=== PATIENT | male | born 1990 | race Caucasian/White ===

== ENCOUNTER 2018-02-19 14:03 | Inpatient (IN) | payer BC ==
[2018-02-19] MEDS ORDERED: LORazepam TAB(*) 1 MG PO ONE ×2 (14:24→19:50)
[2018-02-19] MEDS ORDERED: Haloperidol TAB* 5 MG PO ONE ×2 (14:24→19:50)
[2018-02-19] MEDS ORDERED: diPHENhydraMINE PO* 50 MG PO ONE (14:24)
--- NOTE | 2018-02-19 14:31 | ED ---
Psychiatric Complaint - HPI Summary HPI Summary: A 27 y/o male presents to [facility] with a chief complaint of being brought in by police on a 945 on 02/19/18. He was at [facility], which he reports visiting every week, when his psychiatrist called the police because of concern for the patient being a danger to himself or others. In the ED the patient denies SI/HI. However the patient reports that he has ADD, is bipolar and struggles with depression. He takes Lamictal along with other medication. In the ED he is speaking really fast, claiming that he is hypomanic and unable to eat or sleep. He is saying things like "I am trying to root out corruption in the government", "Republicans never kill themselves", the therapist is "either an atheist or a communist" and "I'm no Busta Rhymes but I can talk consecutively for 35 seconds without taking a breath". He reports being angry after being handcuffed even though he is a Anab[employer] and a pacifist. FHx of bipolar. - History Of Current Complaint Chief Complaint: EDMentalHealth Time Seen by Provider: 02/19/18 14:16 Hx Obtained From: Patient, Other: - police Onset/Duration: Sudden Onset, Lasting Hours Timing: Hours Severity Initially: Moderate Severity Currently: Moderate Character: Manic, Angry Aggravating Factor(s): Nothing Alleviating Factor(s): Nothing Associated Signs And Symptoms: Positive: Sleep Disturbance, Appetite Change Related History: Positive For: Prior Psychiatric Issues Has Suicidal: Denies: Thoughts Has Homicidal: Denies: Thoughts - Allergies/Home Medications Allergies/Adverse Reactions: Allergies Allergy/AdvReac Type Severity Reaction Status Date / Time No Known Allergies Allergy Verified 02/19/18 14:14 Home Medications: Home Medications Bupropion XL* [Wellbutrin XL *] 150 mg PO QAM 02/19/18 [History Confirmed ] Lisdexamfetamine(NF) [Vyvanse(NF)] 20 mg PO DAILY MDD 20 mg 02/19/18 [History Confirmed 02/19/18] QUEtiapine TAB* [Seroquel 100 MG *] 100 mg PO BEDTIME 02/19/18 [History Confirmed 02/19/18] lamoTRIgine TAB(*) [LaMICtal TAB(*)] 200 mg PO BID 02/19/18 [History Confirmed 02/19/18] PMH/Surg Hx/FS Hx/Imm Hx Endocrine/Hematology History: Denies: Hx Diabetes Cardiovascular History: Denies: Hx Hypertension Psychiatric History: Reports: Hx Depression, Hx Bipolar Disorder - Family History Known Family History: Positive: Other - bipolar - Social History Alcohol Use: None Hx Substance Use: No Substance Use Type: Reports: None Hx Tobacco Use: No Smoking Status (MU): Never Smoked Tobacco Review of Systems Negative: Fever Psychological: Other - Negative: SI/HI Positive: Other - Positive: manic and angry, sleep disturbance and appetite change All Other Systems Reviewed And Are Negative: Yes Physical Exam - Summary Physical Exam Summary: Appearance: The patient is well-nourished in no acute distress and in no acute pain. Skin: The skin is warm and dry and skin color reflects adequate perfusion. HEENT: The head is normocephalic and atraumatic. The pupils are equal and reactive. The conjunctivae are clear and without drainage. Nares are patent and without drainage. Mouth reveals moist mucous membranes and the throat is without erythema and exudate. The external ears are intact. The ear canals are patent and without drainage. The tympanic membranes are intact. Neck: The neck is supple with full range of motion and non-tender. There are no carotid bruits. There is no neck vein distension. Respiratory: Chest is non-tender. Lungs are clear to auscultation and breath sounds are symmetrical and equal. Cardiovascular: Heart is regular rate and rhythm. There is no murmur or rub auscultated. There is no peripheral edema and pulses are symmetrical and equal. Abdomen: The abdomen is soft and non-tender. There are normal bowel sounds heard in all four quadrants and there is no organomegaly palpated. Musculoskeletal: There is no back tenderness noted. Extremities are non-tender with full range of motion. There is good capillary refill. There is no peripheral edema or calf tenderness elicited. Neurological: Patient is alert and oriented to person, place and time. The patient has symmetrical motor strength in all four extremities. Cranial nerves are grossly intact. Deep tendon reflexes are symmetrical and equal in all four extremities. Psychiatric: Manic, emotionally labile. Triage Information Reviewed: Yes Vital Signs On Initial Exam: Initial Vitals Temp Pulse Resp BP Pulse Ox 99.0 F 118 18 150/87 100 02/19/18 14:07 02/19/18 14:07 02/19/18 14:07 02/19/18 14:07 02/19/18 14:07 Vital Signs Reviewed: Yes Diagnostics - Vital Signs Vital Signs Temp Pulse Resp BP Pulse Ox 02/19/18 14:07 99.0 F 118 18 150/87 100 - Laboratory Result Diagrams: 02/19/18 15:26 02/19/18 15:26 Lab Statement: Any lab studies that have been ordered have been reviewed, and results considered in the medical decision making process. Re-Evaluation - Re-Evaluation First Eval Re-Evaluation Time: 14:33 Change: Unchanged Comment: Patient is still manic, agrees to seroquel. Second Eval Re-Evaluation Time: 16:00 Change: Unchanged Comment: Patient is cleared for MHE. Course/Dx - Course Course Of Treatment: Mr. Hurtado presented to the emergency department with a pressured, manic speech pattern and labile emotions. He agreed to take some Seroquel to call him down which she has used in the past and it did help. He was not toxic in appearance with stable vital signs. He was medically cleared and evaluated by the mental health unit felt he was appropriate for 939 admission. - Differential Dx/Clinical Impression Provider Diagnosis: Bipolar 1 disorder, Manic behavior - Physician Notifications Discussed Care Of Patient With: Delvin Clark Time Discussed With Above Provider: 18:10 Instructed by Provider To: Other - Per bone drier operator, Dr. Clark has decided that the patient will be an involuntary admit. Discharge - Sign-Out/Discharge Documenting (check all that apply): Patient Departure - Admit - Discharge Plan Condition: Fair [place] [place] Disposition and Condition Condition: FAIR [place]position[place] [facility] [place] Attestation Statements Document Initiated by Scribe: Yes Documenting Scribe: Kaleb العلي Provider For Whom Manjinder is Documenting (Include Credential): Ahmet Mendez MD Scribe Attestation: Kaleb Chavis, scribed for Ahmet Mendez MD on 02/19/18 at 2128. Scribe Documentation Reviewed: Yes Provider Attestation: The documentation as recorded by the Kaleb brooks accurately reflects the service I personally performed and the decisions made by me, Ahmet Mendez MD Status of Scribe Document: Viewed
[2018-02-19] MEDS ORDERED: QUEtiapine TAB* 100 MG PO ONE (14:43)
[2018-02-19] MEDS ORDERED: Mouth Piece, Nicotine* 1 EACH CARTRIDGE INH PRN (15:02)
[2018-02-19 15:27] LABS: Barbiturates Urine Screen None Detected (None Detect); Benzodiazepine Urine Screen None Detected (None Detect); Urine Cannabinoids Screen Presumptive Positive (None Detect)
[2018-02-19 15:41] LABS: Urine Appearance Cloudy; Urine Bacteria Absent (Absent); Urine Bilirubin 1+ (Negative); Urine Blood Negative (Negative); Urine Color Amber; Urine Glucose Negative (Negative); Urine Ketones 2+ (Negative); Urine Nitrite Negative (Negative); Urine Protein 2+(100 mg/dL) (Negative); Urine Red Blood Cell Absent (Absent); Urine Specific Gravity 1.039 (1.010-1.030); Urine Urobilinogen Positive (Negative); Urine White Blood Cell Trace(0-5/hpf) (Absent)
[2018-02-19 15:54] LABS: ABS Basophils 0 10^3/ul (0-0.2); ABS Eosinophils 0 10^3/ul (0-0.6); ABS Lymphocytes 1.3 10^3/ul (1.0-4.8); ABS Monocytes 0.5 10^3/ul (0-0.8); ABS Neutrophils 7.2 10^3/ul (1.5-7.7); ABS Nucleated RBC 0 10^3/ul; Eosinophil % 0.3 %; Hematocrit 46 % (42-52); Hemoglobin 15.9 g/dl (14.0-18.0); Lymphocyte % 14.4 %; Mean Corpuscular HGB Conc 34 g/dl (31-36); Mean Corpuscular Hemoglobin 29 pg (27-31); Mean Corpuscular Volume 86 fL (80-94); Mean Platelet Volume 7.6 fL (7.4-10.4); Nucleated Red Blood Cells % 0.1; Platelet Count 398 10^3/ul (150-450); Red Blood Count 5.41 10^6/ul (4.00-5.40); Red Cell Distribution Width 12 % (10.5-15); White Blood Count 9.1 10^3/ul (3.5-10.8)
[2018-02-19 16:33] LABS: ALT 29 U/L (7-52); AST 26 U/L (13-39); Albumin 5.1 g/dL (3.2-5.2); Albumin/Globulin Ratio 2.1 (1-3); Alkaline Phosphatase 54 U/L (34-104); Anion Gap 9 mmol/L (2-11); BUN/Creatinine Ratio 19.4 (8-20); Blood Urea Nitrogen 24 mg/dL (6-24); CO2 Carbon Dioxide 25 mmol/L (22-32); Calcium 10.2 mg/dL (8.6-10.3); Chloride 104 mmol/L (101-111); EGFR Non-African American 70.5 (>60); Globulin 2.4 g/dL (2-4); Glucose 145 mg/dL (70-100); Potassium 3.7 mmol/L (3.5-5.0); Sodium 138 mmol/L (135-145); Total Protein 7.5 g/dL (6.4-8.9)
[2018-02-19 16:35] LABS: Acetaminophen < 15 mcg/mL; Alcohol < 10 mg/dL (<10); Salicylate < 2.50 mg/dL (<30)
[2018-02-19 16:58] LABS: TSH (Thyroid Stimulating Horm) 0.76 mcIU/mL (0.34-5.60)
[2018-02-19] MEDS ORDERED: diPHENhydraMINE PO* 50 MG ONE (19:34)
[2018-02-19] MEDS ORDERED: Haloperidol TAB* 5 MG ONE (19:34)
[2018-02-19] MEDS ORDERED: LORazepam TAB(*) 1 MG ONE (19:34)
[2018-02-19] MEDS ORDERED: Haloperidol INJ IV/IM* 5 MG/ML AMP ONE (19:43)
[2018-02-19] MEDS ORDERED: LORazepam INJ* 2 MG/ML 1 ML VIAL ONE (19:43)
[2018-02-19] MEDS ORDERED: diPHENhydraMINE PO* 25 MG PO ONE (19:50)
[2018-02-19] MEDS ORDERED: Acetaminophen TAB* 325 MG PO PRN (22:13)
[2018-02-19] MEDS ORDERED: Al Hydrox/Mg Hydrox/Simet LIQ* 30 ML UDC PO PRN (22:13)
[2018-02-19] MEDS ORDERED: QUEtiapine TAB* 100 MG PO SCH (23:30)
[2018-02-20] MEDS: lamoTRIgine TAB(*) 100 MG PO SCH ×3 (02:11→21:43)
--- NOTE | 2018-02-20 11:31 | PN ---
MHU: Group Therapy Note - Service Type Service Type: 26279 Group Psychotherapy - Cognitive Behavioral Group Therapy ( CBT):Patient presented in CBT programming as disorganized and disruptive in discussion and needed repeated redirection to attend to presented materials.
[2018-02-20] MEDS ORDERED: LORazepam TAB(*) 1 MG PO PRN (11:52)
[2018-02-20] MEDS: BuPROPion XL* 150 MG TAB.XL PO SCH (12:45)
[2018-02-20] MEDS: Vitamin THERAPEUTIC TAB PO SCH (12:45)
[2018-02-20] MEDS ORDERED: Haloperidol TAB* 5 MG PO PRN (12:50)
--- NOTE | 2018-02-20 12:58 | HP ---
H&P (Free Text) History and Physical: CC "No one understands HPI 27 year old white single male with past history of bipolar disorder presented to the Emergency room brought by police. He reported that his girlfriend makes him feel all alone and that he is going to leave her because of the way she makes him feel. He reported that on February 15 was the 10th anniversary of his mother from cancer. He reports that he wants to move back to [place] to live with his father. He reported that he recently saw a psychiatrist and was given Seroquel which he took for 4 days and that helped him sleep. He went to explain that it also made him hypo-manic. He describes it as a demon taking over his body and felt possessed. In a loud voice he demands that this provider look me in the eye and tell me right now that I dont deserve to be here. He gets up and takes off his shirt and says look at my scar I have been through all of this and you cant tell me I dont deserve to be here. He denied recent consumption of diet pills., steroids, energy drinks, and or illicit drug use other than cannabis. The patient said yes I am suicidal I tried doing it twice before and then changed his mind saying no that would be selfish I have seen how much pain that caused a family in the past. A girl I once dated had a father who shot himself in the head. He denied homicidal ideation intent or plan. Bipolar He reported feeling irritable most of the time while having an persistent abundance of energy most of the day without the use of substances other than cannabis and what he is prescribed . He reported having the decreased need to sleep for the last 2 nights. He reports no one knows how smart I am. MDD He reported in the past having feelings of low self worth , feeling empty inside , with feelings of hopelessness .He reported unintentional weight loss and lack of appetite . He reported that he has trouble staying asleep. Currently he reports no periods of low levels of energy or difficulty initiating and completing tasks. Psychosis He denied hearing things that other people do not hear or seeing things other people do not see. He denied feeling that the TV is making references. He said that he is trustful of others and feels safe on the unit. The patient denied auditory and/ or visual hallucinations. Anxiety He denied fear of crowds, or phobias. He denied having symptoms of anxiety. He denied worrying most of the day and denied panic attacks. PTSD He denied flashbacks or recurrent nightmares or avoidance. PAST PSYCHIATRIC HISTORY: History of Bipolar disorder 1st admission: Denied past psychiatric hospitalizations in the past. History of past suicide/homicide attempts : 2 past suicide attempts both in 2008 the year his mother from cancer. He denied past homicidal incidents. Outpatient follow-up: Currently receiving mental health treatment follow up with Mrs. Colin [facility] LOOM TENDER . Medications: Past trials of medications included Seroquel Patient reported suicidal ideation with Zoloft and Remeron. He currently is on Seroquel 100mg qhs and lamictal 200mg BID (last taken yesterday) , Wellbutrin 150mg daily, vyvanse 20mg daily. FAMILY HISTORY: - Suicide: Denied - Mental illness: Mother and 2 brothers Dx with Bipolar I disorder - Substance abuse: Denied SUBSTANCE ABUSE HISTORY: He denied heroin and cocaine or using other illicit substances. He denied abusing pills not prescribed to him. He denied past substance abuse treatment. He smokes cannabis every night. He denied alcohol use in the last 3 years. He denied nicotine use. SOCIAL HISTORY: He is a single white male who has no children. Living with girlfriend in [place] he moved with her here to be with her because she is in law school. He was raised in [facility] [place] [facility] in [place] by both parents. His mother 10 years ago from cancer. He reported having a close relationship with his father. He reported completed college education at [employer]. He reported having his cousins and 2 brothers for support. PAST MEDICAL HISTORY: Past history of testicular cancer that was surgically removed. Allergies: He denied known drug or food allergies Physical Exam: Please see ED note Mental Status Exam Appearance: 27 year old male appears stated age. Wearing glasses and blue patient gown. Psychomotor activity: Psychomotor agitation Eye contact: Fair Posture: Upright Attitude/behavior: Irritable, Defensive Speech: Pressured speech Mood: "upset " Affect: constricted Thought process: flight of ideas Thought content: Tangential Perceptions: He did not appear to be responding to internal stimuli. No visual hallucinations and/ or auditory hallucinations. Suicidal/homicidal targets: Recent suicidal ideation without intent or plan. Denied homicidal ideation, intent or plans. Sensorium/orientation: Awake and alert. Oriented to self, location, and time Insight/judgment: Poor insight and judgment. AXIS I: Bipolar I, current manic phase. Cannabis use disorder. Plan Justification for admission: Patient is a danger to himself, currently manic and is unable to appreciate his treatment needs. Involuntary admission. . Patient submitted court request criminal justice social worker informed. Haldol 5mg PO q6 prn for psychotic agitation. The patient requires inpatient admission at this time to assure safety, receive treatment and work toward stabilization. Admit to B[facility] on voluntary admission. Q15 minute observation. Start regular diet. Encourage participation in activities on the milieu. Patient evaluated in ED and is medically stable for admission. VS and Lab results reviewed. Cr = 1.24 will monitor and encourage fluid intake and repeat lab for tomorrow. Continue lamictal 200mg BID for mood stabilization last taken yesterday and denied rash or recent discontinuation. Start Seroquel 200mg BID for mood. Start Ativan 0.5 mg BID. Stop date planed for 02/23/18 once mood regulation improves. Goals to include improve mood regulation. The risks, benefits, and alternative treatment options were discussed as well as of the risks of refusing treatment. Treatment associated risks discussed . After this discussion and an acknowledgement of his understanding he made the decision for the current type of treatment.
[2018-02-20] MEDS: LORazepam TAB(*) 0.5 MG PO SCH (21:43)
[2018-02-20] MEDS: QUEtiapine TAB* 100 MG PO SCH (21:43)
[2018-02-21] MEDS: lamoTRIgine TAB(*) 100 MG PO SCH ×2 (08:34→20:56)
[2018-02-21] MEDS: QUEtiapine TAB* 100 MG PO SCH ×2 (08:34→20:56)
[2018-02-21] MEDS: BuPROPion XL* 150 MG TAB.XL PO SCH (08:34)
[2018-02-21] MEDS: LORazepam TAB(*) 0.5 MG PO SCH ×2 (08:34→20:57)
[2018-02-21] MEDS: Vitamin THERAPEUTIC TAB PO SCH (08:35)
[2018-02-21 09:56] LABS: EGFR Non-African American 56.6 (>60); HDL Cholesterol 40.8 mg/dL
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
[2018-02-21 13:26] LABS: BUN/Creatinine Ratio 11.3 (8-20); Calcium 9.7 mg/dL (8.6-10.3); Potassium 3.8 mmol/L (3.5-5.0)
--- NOTE | 2018-02-21 15:55 | CONS ---
CC: Dr. Benjy Samuels * CONSULTATION REPORT: DATE OF CONSULT: 02/21/18 CONSULTING PROVIDER: Dr. Benjy Samuels. MY ATTENDING WHILE IN THE HOSPITAL: Dr. John Nj. REASON FOR CONSULT: Acute kidney injury. HISTORY OF PRESENT ILLNESS: Mr. Hurtado is a 27-year-old male with past medical history significant for testicular cancer with retroperitoneal lymph node dissection, status post chemotherapy and radiation, in remission for 6 years, with no other known past medical history, who presented to the emergency department on 02/19/18 in acute meredith with church fixation, aggressive behavior, and was admitted to the behavioral service unit on an involuntary basis. The patient at home was taking Vyvanse, bupropion, and lamotrigine. The patient also was very recently started on quetiapine. The patient upon admission had elevated creatinine and 2+ protein in the urine, though it was a very concentrated sample. The patient initially had a creatinine of 1.24, which increased to 1.50 on 02/21/18. For unknown reasons, the patient says that he has been trying to drink quite a bit of fluid. The patient denies any symptoms of dehydration. The patient denies dizziness on standing, chest pain, shortness of breath. The patient has never had his kidney function discussed with him, but his most recent creatinine on 04/10/17 was 1.20. The patient is not a known diabetic. The patient in the emergency department was slightly hypertensive with a blood pressure of 150/87. The patient denies any stimulant drug abuse. The patient does not know what chemotherapy agents were used for his testicular cancer except for bleomycin. The patient also states that he had retroperitoneal lymph node dissection which was complicated by a midline incision injury. He does not know what antibiotics were used to treat this as well. The patient follows with Dr. Granados, but has not had any routine lab work per his report. The patient had a norovirus 2 weeks ago with severe nausea and diarrhea and felt very dehydrated at that time and feels like that was what prompted his hypomanic episode. The patient is very difficult to take a history from as he has ongoing extreme church fixation and persecutory delusions, feeling no one is listening to him and speaks tangentially with long stories about his past and feelings of being wronged. The patient has not noticed any abnormalities in his urine since he was in football in high school and had some blood in his urine with extreme exercise. The patient's oncologist in [place], [place], is Dr. Deutsch. The patient denies any decrease in his urine, change in the frequency or color of his urine. No pain with urination. No fevers or chills. PAST MEDICAL HISTORY: Testicular cancer with lymph node metastasis, status post retroperitoneal lymph node dissection; bipolar 1 disorder; chronic kidney disease. MEDICATIONS ON ADMISSION: 1. Lamotrigine 200 mg p.o. b.i.d. 2. Vyvanse 20 mg p.o. daily. 3. Bupropion 150 mg p.o. q.a.m. 4. Quetiapine 100 mg p.o. at bedtime. ALLERGIES: No known drug allergies. FAMILY HISTORY: The patient's father had hypertension, but smoked and drank and he is still alive. The patient's mother of Gallegos sarcoma 10 years ago. The patient has 2 brother who suffer from bipolar disorder. SOCIAL HISTORY: The patient denies ever smoking, drinks occasionally, uses cannabis. The patient works in [email or web address] service. The patient has a girlfriend , Lara, who he feels a large amount of anger towards. The patient has not appointed a surrogate decision maker at this time. REVIEW OF SYSTEMS: A 14-point review of systems was reviewed and was negative except as above in the HPI. PHYSICAL EXAM: General: The patient is a 27-year-old male who appears stated age, sitting comfortably in bed, in no acute distress. Vital Signs: Most recently, temperature 97.9, pulse rate 117, respiratory rate 16, oxygen saturation 100% on room air, blood pressure 133/107. HEENT: Head normocephalic , atraumatic. Sclerae anicteric. No conjunctival injection. Nasal mucosa moist. Oral mucosa moist. No pharyngeal erythema, discharge, or exudate. Neck : Supple, nontender. No lymphadenopathy. No carotid bruits auscultated. No JVD. Cardiac: Regular rate and rhythm. No clicks, murmurs, gallops, or rubs. Pulses are +2 in the bilateral dorsalis pedis, posterior tibialis, and radial areas. Respiratory: Clear to auscultation bilaterally. No wheezes, rales, or rhonchi. Good air exchange bilaterally. Abdomen: Soft, nontender, nondistended. Bowel sounds present and normoactive in all 4 quadrants. No hepatosplenomegaly. Nonpalpable kidneys. No abdominal bruits auscultated. No hepatojugular reflux. Genitourinary: No suprapubic or CVA tenderness. Skin: Clean, dry, and intact. No rash. DIAGNOSTIC STUDIES/LAB DATA: Pertinent Laboratory Data: Carbon dioxide 25 on admission, now decreased to 18. Anion gap of 9 on admission, increased to 17. BUN 24 on admission, decreased to 17. Creatinine 1.24, increased to 1.5. Glucose on admission 145, this was a nonfasting level. LDL cholesterol 122. Urine shows specific gravity 1.039, protein 2+, 2+ ketones, 1+ bilirubin, positive urobilinogen, positive squamous epithelial cells, negative white blood cells, positive amphetamines, positive cannabinoids. ASSESSMENT AND PLAN: Impression: Mr. Hurtado is a 27-year-old male with a past medical history significant for testicular cancer with chemotherapy treatment as well as prolonged antibiotic treatment for a wound infection, who is currently admitted for a manic episode. The patient's creatinine increased from 1.24 to 1.5 today for unknown reasons. The patient's baseline from previous lab results when healthy in April was 1.2. The patient will continue to be admitted on the psychiatry inpatient and will have workup for causes of chronic kidney disease and acute kidney injury. 1. Acute kidney injury. The patient likely has some degree of chronic kidney disease, likely from his chemotherapy. He is unable to state what other medications he was given besides bleomycin. Both chemotherapy drugs as well as antibiotics are frequently nephrotoxic. The patient has been encouraged to drink a large amount of oral intake. The patient is not currently able to get IV fluids well. The behavioral service unit is unclear whether or not the patient will be able to drink a large amount of fluid as he talks incessantly and is preoccupied religiously. Repeat urinalysis is pending at this time for repeat specific gravity and other elements. The patient also has a urine creatinine concentration, sodium concentration, protein concentration pending as well as a creatine kinase and a hemoglobin A1c. The patient has no seizure activity known before he came to the hospital, but is on bupropion and Vyvanse and may have struggled with the law enforcement officers coming in. The patient has no other signs of rhabdomyolysis. We will obtain a renal and bladder ultrasound to rule out obstruction, congenital defect, damage from radiation or surgery, as well as kidney size to help with assessing the chronicity of the patient's elevated creatinine. We will attempt to get records from the patient's oncologist in [place], [place], Dr. Deutsch. This request has been placed. We will repeat in the morning evaluation of the patient's renal vasculature. Workup for autoimmune disease or other intrinsic causes of acute kidney injury will be deferred at this time. 2. Bipolar 1 disorder. Management per Psychiatry. The patient is currently showing signs of acute meredith. 3. FEN. P.o. fluids will be encouraged. The patient will have an unrestricted diet. 4. Disposition. The patient admitted involuntarily to the B[facility] and disposition will be per the psychiatrist. TIME SPENT: Approximately 75 minutes were spent in this consultation, 45 of which was spent [id number] with the patient obtaining history and physical and discussing treatment plan. This plan was discussed with my attending, Dr. John Nj, and he is in agreement. Thank you very much for this consultation. Please feel free to call with any questions. CHU HULL [id number]/[facility] #: [id number] NANETTE
[2018-02-21 21:03] LABS: Urine Appearance Clear; Urine Bilirubin Negative (Negative); Urine Blood Negative (Negative); Urine Color Straw; Urine Glucose Negative (Negative); Urine Ketones Negative (Negative); Urine Nitrite Negative (Negative); Urine Protein Negative (Negative); Urine Specific Gravity 1.004 (1.010-1.030); Urine Urobilinogen Negative (Negative)
[2018-02-21 21:14] LABS: Urine Sodium Concentration < 18 mmol/L; Urine TP Concentration < 4 mg/dL
[2018-02-22 08:14] LABS: BUN/Creatinine Ratio 8.9 (8-20); EGFR Non-African American 63.9 (>60); Potassium 3.8 mmol/L (3.5-5.0)
[2018-02-22] MEDS: QUEtiapine TAB* 100 MG PO SCH ×2 (08:53→20:19)
[2018-02-22] MEDS: BuPROPion XL* 150 MG TAB.XL PO SCH (08:53)
[2018-02-22] MEDS: LORazepam TAB(*) 0.5 MG PO SCH ×2 (08:54→20:19)
[2018-02-22] MEDS: lamoTRIgine TAB(*) 100 MG PO SCH ×2 (08:54→20:20)
[2018-02-22] MEDS: Vitamin THERAPEUTIC TAB PO SCH (08:54)
--- NOTE | 2018-02-22 11:35 | PN ---
MHU: Group Therapy Note - Service Type Service Type: 70656 Group Psychotherapy - Cognitive Behavioral Group Therapy ( CBT):Patient presented in CBT programming as disorganized and disruptive in discussion and needed repeated redirection to attend to presented materials.
--- NOTE | 2018-02-22 12:38 | PN ---
Subjective - Subjective Date of Service: 02/22/18 Service Type: 25694 Hosp care 25 min moderate complexity Subjective: SUBJECTIVE: Nursing Report: Patient was visible on unit, no chemical restraints or PRNs. Slept overnight. Attending group but disruptive in group and the milieu. CC: "I am passionate, doc. Patient was seen and evaluated by parts data writer today in the common day room. The patient reported that he is just passionate and is not manic. He reported that his family needs him and he needs to be discharged. He reports that he is uatsdin and can help everyone here. Nursing report reveals he was yelling at his girlfriend on the phone and accused her of being in a liberal cult. Patient reported feeling tired from medications but says that he doesnt feel like arguing as much. Patient denied shortness of breath, pain on urination, chest pain, rash, diarrhea, fever, muscle pain or stiffness Patient reports having good appetite and sound sleep overnight. He denied suicidal and/or homicidal ideation intent or plan. Objective - Appearance Appearance: Healthy Appearing Dysmorphic Features: No Hygiene: Normal Grooming: Fairly Well Kept - Behavior Psychomotor Activities: Normal Exhibits Abnormal Movement: No - Attitude and Relatedness Attitude and Relatedness: Irritable Eye Contact: Fair - Speech Quality: Pressured Latencies: Long Quantity: Copious - Mood Patient's Decription of Mood: "Fine" - Affect Observed Affect: Labile Affect Consistent with: Euphoria - Thought Process Patient's Thought Process: Incoherent Thought Content: No Passive Wish, No Suicidal Planning, No Homicidal Ideation, No Paranoid Ideation - Sensorium Experiencing Hallucinations: No, Sensorium is Clear Type of Hallucinations: Visual: No, Auditory: No, Command: No - Level of Consciousness Level of Consciousness: Alert Orientation: Yes Intact, Yes Orientated to Time, Yes Orientated to Place, Yes Orientated to Person - Insight and Judgement Insight and Judgement: Impaired - Group Participation Particating in Group Activities: Yes - Medication Management Medication Management Adherence: Yes Assessment - Assessment Merits Inpatient Hospitalization: For Immediate Safety Inpatient DSM-V Dx: F31.2 Clinical Impression: 27 year old single male with history of Bipolar disorder. Currently manic and disruptive on the unit. He is compliant with treatment and continues to display features of meredith. Patient has shown some improvement since admission less pressured speech and less irritability. MHU: Problem List - Patient Problems (1) Bipolar disorder with psychotic features Current Visit: Yes Status: Acute Code(s): F31.9 - BIPOLAR DISORDER, UNSPECIFIED SNOMED Code(s): 91302180 Plan - Plan Treatment Plan: Name: SANDRA CORNELL Birthdate: 1990 [id number] Justification for admission: Patient is a danger to himself, currently manic and is unable to appreciate his treatment needs. The patient requires inpatient admission at this time to assure safety, receive treatment and work toward stabilization. Court is scheduled for tomorrow . Haldol 5mg PO q6 prn for psychotic agitation. Start to taper down lamictal to 100mg BID and start depakote 250mg qhs with plan to increase to 250mg BID tomorrow . VA has shown a positive response in family members with bipolar disorder. Advised to monitor for rash as lamictal can increase VA levels. Continue seroquel to 300mg PO BID and wellbutrin 150mg daily. Decrease ativan to 0.5mg qhs due to sedation. Encouraged to drink fluids. Cr. trending down 1.35 02/22/18 AIMS 0 EKG ordered for tachycardia Goals to include improve mood regulation. Denied history of diabetes and or seizures . AIMS 0. Signed release to speak to his girlfriend. Family meeting to be set up. The risks, benefits, and alternative treatment options were discussed as well as of the risks of refusing treatment. Treatment associated risks discussed . After this discussion and an acknowledgement of his understanding he made the decision for the current type of treatment. Vital Signs (72 hours) 02/19/18 02/19/18 02/19/18 14:07 14:30 18:34 Temperature 99.0 F 98.1 F Pulse Rate 118 100 Respiratory 18 24 20 Rate Blood Pressure 150/87 113/75 (mmHg) O2 Sat by Pulse 100 99 Oximetry 02/19/18 02/19/18 02/20/18 19:33 20:00 02:12 Temperature 98 F Pulse Rate 112 Respiratory 16 16 16 Rate Blood Pressure 130/78 (mmHg) O2 Sat by Pulse 99 Oximetry 02/20/18 02/20/18 02/20/18 02:13 08:20 08:36 Temperature 98.1 F Pulse Rate 118 Respiratory 16 16 18 Rate Blood Pressure 145/96 (mmHg) O2 Sat by Pulse 100 Oximetry 02/20/18 02/20/18 02/20/18 14:18 21:43 23:40 Temperature Pulse Rate Respiratory 18 16 16 Rate Blood Pressure (mmHg) O2 Sat by Pulse Oximetry 02/21/18 02/21/18 02/21/18 07:56 08:34 11:07 Temperature 97.9 F Pulse Rate 117 Respiratory 16 18 16 Rate Blood Pressure 133/107 (mmHg) O2 Sat by Pulse 100 Oximetry 02/21/18 02/21/18 02/21/18 11:27 20:57 23:58 Temperature Pulse Rate Respiratory 16 18 16 Rate Blood Pressure (mmHg) O2 Sat by Pulse Oximetry 02/22/18 02/22/18 02/22/18 08:54 11:02 12:01 Temperature 99.1 F Pulse Rate 98 Respiratory 16 16 17 Rate Blood Pressure 126/78 (mmHg) O2 Sat by Pulse 100 Oximetry 02/22/18 12:41 Temperature Pulse Rate Respiratory 16 Rate Blood Pressure (mmHg) O2 Sat by Pulse Oximetry Laboratory Results - last 24 hr 02/19/18 02/21/18 02/21/18 15:26 09:22 20:45 Sodium 138 Potassium 3.8 Chloride 103 Carbon Dioxide 18 L Anion Gap 17 H BUN 17 Creatinine 1.50 H Est GFR ( Amer) 68.4 Est GFR (Non-Af Amer) 56.6 BUN/Creatinine Ratio 11.3 Glucose 77 Hemoglobin A1c 5.2 Calcium 9.7 Total Creatine Kinase 263 H Triglycerides 116 Cholesterol 186 LDL Cholesterol 122 HDL Cholesterol 40.8 Urine Color Straw Urine Appearance Clear Urine pH 6.0 Ur Specific [place] 1.004 L Urine Protein Negative Urine Ketones Negative Urine Blood Negative Urine Nitrate Negative Urine Bilirubin Negative Urine Urobilinogen Negative Ur Leukocyte Esterase Negative Ur Creatinine Concen Ur Total Protein Conc U Sodium Concentration Urine Glucose Negative 02/21/18 02/22/18 20:45 07:18 Sodium 138 Potassium 3.8 Chloride 102 Carbon Dioxide 24 Anion Gap 12 H BUN 12 Creatinine 1.35 H Est GFR ( Amer) 77.3 Est GFR (Non-Af Amer) 63.9 BUN/Creatinine Ratio 8.9 Glucose 101 H Hemoglobin A1c Calcium 10.0 Total Creatine Kinase Triglycerides Cholesterol LDL Cholesterol HDL Cholesterol Urine Color Urine Appearance Urine pH Ur Specific [place] Urine Protein Urine Ketones Urine Blood Urine Nitrate Urine Bilirubin Urine Urobilinogen Ur Leukocyte Esterase Ur Creatinine Concen 63.30 Ur Total Protein Conc < 4 U Sodium Concentration < 18 Urine Glucose Continued Medication Management: Start Medication Medications: Current Medications Acetaminophen (Tylenol Tab*) 650 mg PO Q4H PRN PRN Reason: PAIN or TEMP > 101 F Al Hydrox/Mg Hydrox/Simethicone (Maalox Plus*) 30 ml PO Q4H PRN PRN Reason: INDIGESTION Bupropion HCl (Wellbutrin Xl *) 150 mg PO DAILY [facility] Last Admin: 02/22/18 08:53 Dose: 150 mg Device (Nicotine Mouth Piece*) 1 each INH Q2H PRN PRN Reason: CRAVINGS Haloperidol (Haldol Tab*) 5 mg PO Q6H PRN PRN Reason: psychotic agitation Lamotrigine (Lamictal Tab(*)) 100 mg PO BID [facility] Lorazepam (Ativan Tab(*)) 0.5 mg PO 2100 [facility] Stop: 02/23/18 21:00 Multivitamins (Theragran Tab*) 1 tab PO DAILY [facility] Last Admin: 02/22/18 08:54 Dose: 1 tab Nicotine (Nicotine Inhaler*) 10 mg INH Q2H PRN PRN Reason: CRAVING Quetiapine Fumarate (Seroquel Tab*) 300 mg PO BID [facility] Last Admin: 02/22/18 08:53 Dose: 300 mg Valproic Acid (Depakene Cap(*)) 250 mg PO ONCE ONE Stop: 02/22/18 21:01 - Discharge Plan Discharge Plan: Inpatient Hospitalization
[2018-02-22] MEDS ORDERED: Valproic Acid CAP(*) 250 MG PO ONE (21:00)
--- NOTE | 2018-02-22 22:47 | PN ---
Subjective Date of Service: 02/22/18 Interval History: Patient denies difficulty with urination, denies frequency or pain, states that he was not eating and drinking prior to coming into the hospital and felt as if he was dehydrated. Denies chest pain or shortness of breath , denies abd pain n/v/d. Family History: Unchanged from Admission Social History: Unchanged from Admission Past Medical History: Unchanged from Admission Objective Active Medications: Acetaminophen (Tylenol Tab*) 650 mg PO Q4H PRN PRN Reason: PAIN or TEMP > 101 F Al Hydrox/Mg Hydrox/Simethicone (Maalox Plus*) 30 ml PO Q4H PRN PRN Reason: INDIGESTION Bupropion HCl (Wellbutrin Xl *) 150 mg PO DAILY [facility] Last Admin: 02/22/18 08:53 Dose: 150 mg Device (Nicotine Mouth Piece*) 1 each INH Q2H PRN PRN Reason: CRAVINGS Haloperidol (Haldol Tab*) 5 mg PO Q6H PRN PRN Reason: psychotic agitation Lamotrigine (Lamictal Tab(*)) 100 mg PO BID [facility] Last Admin: 02/22/18 20:20 Dose: 100 mg Lorazepam (Ativan Tab(*)) 0.5 mg PO 2100 [facility] Stop: 02/23/18 21:00 Last Admin: 02/22/18 20:19 Dose: 0.5 mg Multivitamins (Theragran Tab*) 1 tab PO DAILY [facility] Last Admin: 02/22/18 08:54 Dose: 1 tab Nicotine (Nicotine Inhaler*) 10 mg INH Q2H PRN PRN Reason: CRAVING Quetiapine Fumarate (Seroquel Tab*) 300 mg PO BID [facility] Last Admin: 02/22/18 20:19 Dose: 300 mg Vital Signs - 8 hr 02/22/18 02/22/18 20:19 22:34 Respiratory 16 16 Rate Appearance: alert and oriented x 3 , no acute distress Eyes: No Scleral Icterus Ears/Nose/Mouth/Throat: Clear Oropharnyx, Mucous Membranes Moist Neck: NL Appearance and Movements; NL JVP Respiratory: Symmetrical Chest Expansion and Respiratory Effort, Clear to Auscultation Cardiovascular: NL Sounds; No Murmurs; No JVD, No Edema Abdominal: NL Sounds; No Tenderness; No Distention Extremities: No Edema, No Clubbing, Cyanosis Skin: No Rash or Ulcers Neurological: Alert and Oriented x 3 Nutrition: Taking PO's Result Diagrams: 02/19/18 15:26 02/22/18 07:18 Microbiology and Other Data: Microbiology 02/19/18 14:50 Urine Culture - Final Urine No Growth (<1,000 CFU/mL) Assess/Plan/Problems-Billing Assessment: 27 y.o male with pmhx of testicular cancer s/p chemo and radiation, bipolar 1 who presented to the ER with bipolar meredith with lutheran fixation and was admitted to MHU on involuntary status. - Patient Problems (1) Bipolar disorder with psychotic features Current Visit: Yes Status: Acute Code(s): F31.9 - BIPOLAR DISORDER, UNSPECIFIED SNOMED Code(s): 97205870 Comment: management per psych (2) REYNALDO (acute kidney injury) Current Visit: Yes Status: Acute Code(s): N17.9 - ACUTE KIDNEY FAILURE, UNSPECIFIED SNOMED Code(s): 98908353 Comment: - suspect this is likely from dehydration - creatinine is improved today- patient reports that he has increased PO intake - encouraged to drink plenty fluids - avoid nephrotoxic medications - repeat bmp in 1 week - renal ultrasound -wnl (3) Full code status Current Visit: Yes Status: Acute Code(s): Z78.9 - OTHER SPECIFIED HEALTH STATUS SNOMED Code(s): 833499774 Status and Disposition: at this time given the improving creatinine level we will sign off. thank you for allowing us to participate in the care of this patient . disposition per psych
[2018-02-23] MEDS: BuPROPion XL* 150 MG TAB.XL PO SCH (08:37)
[2018-02-23] MEDS: Vitamin THERAPEUTIC TAB PO SCH (08:37)
[2018-02-23] MEDS: QUEtiapine TAB* 100 MG PO SCH ×2 (08:38→20:10)
[2018-02-23] MEDS: lamoTRIgine TAB(*) 100 MG PO SCH (08:38)
--- NOTE | 2018-02-23 08:38 | PN ---
Subjective - Subjective Date of Service: 02/23/18 Service Type: 77950 Hosp care 25 min moderate complexity Subjective: SUBJECTIVE: Nursing Report: Patient was visible on unit, no chemical restraints or PRNs. Slept overnight. Attending group but disorganized in group and the milieu. CC: "I am not crazy Patient was seen and evaluated by personal lines underwriter today in the common day room. He was seen rapping in the relaxation room with peer around 745am. The patient reported that he is ready for court and that he wants to play his cards right so he can get out today. He reported that there is nothing here that the outpatient people can not do. " I will come back to the hospital everyday Doc you have to believe me I have to get out today." He reports that he may be religion but what happens in court is the fate of God. Patient denied feeling drowsy from medications. He denied rash or side effects from medications. Patient denied shortness of breath, pain on urination , chest pain, rash, diarrhea, fever, muscle pain or stiffness Patient reports having good appetite and sound sleep overnight. He denied suicidal and/or homicidal ideation intent or plan. Objective - Appearance Appearance: Healthy Appearing Dysmorphic Features: No Hygiene: Normal Grooming: Fairly Well Kept - Behavior Psychomotor Activities: Normal Exhibits Abnormal Movement: No - Attitude and Relatedness Attitude and Relatedness: Irritable Eye Contact: Fair - Speech Quality: Pressured Latencies: Long Quantity: Copious - Mood Patient's Decription of Mood: "Fine" - Affect Observed Affect: Constricted Affect Consistent with: Euphoria - Thought Process Patient's Thought Process: Disorganized Thought Content: No Passive Wish, No Suicidal Planning, No Homicidal Ideation, No Paranoid Ideation - Sensorium Experiencing Hallucinations: No, Sensorium is Clear Type of Hallucinations: Visual: No, Auditory: No, Command: No - Level of Consciousness Level of Consciousness: Alert Orientation: Yes Intact, Yes Orientated to Time, Yes Orientated to Place, Yes Orientated to Person - Impulse Control Impulse Control: Poor - Insight and Judgement Insight and Judgement: Poor - Group Participation Particating in Group Activities: Yes - Medication Management Medication Management Adherence: Yes Assessment - Assessment Inpatient DSM-V Dx: F31.2 Clinical Impression: 27 year old single male with history of Bipolar disorder. Currently manic and disruptive on the unit. He is compliant with treatment and continues to display features of meredith. Patient has shown some improvement since admission less pressured speech and less irritability. MHU: Problem List - Patient Problems (1) Bipolar disorder with psychotic features Current Visit: Yes Status: Acute Code(s): F31.9 - BIPOLAR DISORDER, UNSPECIFIED SNOMED Code(s): 46237960 Comment: management per psych Plan - Plan Treatment Plan: Name: SANDRA CORNELL Birthdate: 1990 [id number] Justification for admission: Patient is a danger to himself, currently manic and is unable to appreciate his treatment needs. The patient requires inpatient admission at this time to assure safety, receive treatment and work toward stabilization. Court hearing today at 2pm. Haldol 5mg PO q6 prn for psychotic agitation. Start to taper down lamictal to 50 mg BID and discontinue at 2100 tonight. Increase depakote 250mg BID tomorrow and then 500mg BID starting Monday. LFT and VA level labs to be drawn on Monday. VA has shown a positive response in family members with bipolar disorder. Denied blood and or liver conditions. Advised to monitor for rash as lamictal can increase VA levels. Continue Seroquel to 300mg PO BID and wellbutrin 150mg daily. Continue Ativan to 0.5mg qhs due to sedation and d/c at 2100 tonight. Encouraged to drink fluids. Cr. trending down 1.35 02/22/18 EKG ordered for tachycardia Goals to include improve mood regulation. Denied history of diabetes and or seizures . AIMS 0. Signed release to speak to his girlfriend. Family meeting to be set up. The risks, benefits, and alternative treatment options were discussed as well as of the risks of refusing treatment. Treatment associated risks discussed . After this discussion and an acknowledgement of his understanding he made the decision for the current type of treatment. Continued Medication Management: Start Medication Medications: Current Medications Acetaminophen (Tylenol Tab*) 650 mg PO Q4H PRN PRN Reason: PAIN or TEMP > 101 F Al Hydrox/Mg Hydrox/Simethicone (Maalox Plus*) 30 ml PO Q4H PRN PRN Reason: INDIGESTION Bupropion HCl (Wellbutrin Xl *) 150 mg PO DAILY [facility] Last Admin: 02/22/18 08:53 Dose: 150 mg Device (Nicotine Mouth Piece*) 1 each INH Q2H PRN PRN Reason: CRAVINGS Haloperidol (Haldol Tab*) 5 mg PO Q6H PRN PRN Reason: psychotic agitation Lamotrigine (Lamictal Tab(*)) 100 mg PO BID [facility] Last Admin: 02/22/18 20:20 Dose: 100 mg Lorazepam (Ativan Tab(*)) 0.5 mg PO 2100 [facility] Stop: 02/23/18 21:00 Last Admin: 02/22/18 20:19 Dose: 0.5 mg Multivitamins (Theragran Tab*) 1 tab PO DAILY [facility] Last Admin: 02/22/18 08:54 Dose: 1 tab Nicotine (Nicotine Inhaler*) 10 mg INH Q2H PRN PRN Reason: CRAVING Quetiapine Fumarate (Seroquel Tab*) 300 mg PO BID [facility] Last Admin: 02/22/18 20:19 Dose: 300 mg - Discharge Plan Discharge Plan: Inpatient Hospitalization
[2018-02-23] MEDS: LORazepam TAB(*) 0.5 MG PO SCH (20:10)
[2018-02-23] MEDS: Valproic Acid CAP(*) 250 MG PO SCH (20:40)
[2018-02-23] MEDS ORDERED: lamoTRIgine TAB(*) 25 MG PO ONE (21:00)
[2018-02-24] MEDS: BuPROPion XL* 150 MG TAB.XL PO SCH ×2 (08:51→08:56)
[2018-02-24] MEDS: QUEtiapine TAB* 100 MG PO SCH ×3 (08:51→21:18)
[2018-02-24] MEDS: Vitamin THERAPEUTIC TAB PO SCH (08:52)
[2018-02-24] MEDS: Valproic Acid CAP(*) 250 MG PO SCH ×3 (08:52→21:17)
[2018-02-24 09:27] LABS: Albumin 4.6 g/dL (3.2-5.2); Albumin/Globulin Ratio 1.7 (1-3); Globulin 2.7 g/dL (2-4); Indirect Bilirubin 0.4 mg/dL (0.3-1.0); Total Bilirubin 0.5 mg/dL (0.2-1.0); Total Protein 7.3 g/dL (6.4-8.9)
[2018-02-24] MEDS: Nicotine Inhaler* 10 MG AMP INH PRN (14:56)
[2018-02-25] MEDS: Vitamin THERAPEUTIC TAB PO SCH (08:58)
[2018-02-25] MEDS: BuPROPion XL* 150 MG TAB.XL PO SCH (08:58)
[2018-02-25] MEDS: QUEtiapine TAB* 100 MG PO SCH ×2 (08:58→20:22)
[2018-02-25] MEDS: Valproic Acid CAP(*) 250 MG PO SCH ×2 (08:58→20:22)
--- NOTE | 2018-02-25 16:59 | PN ---
Progress Note - Progress Note Date of Service: 02/25/18 Note: Per nursing Eric is doing fine. He has been calm, focused and cooperative without verbalization of mood, thoughts or perceptual disturbances or violent thoughts. Not a management problem on the unit. Plan is to continue current treatments.
[2018-02-25] MEDS: Nicotine Inhaler* 10 MG AMP INH PRN (20:22)
[2018-02-26] MEDS: Vitamin THERAPEUTIC TAB PO SCH (09:41)
[2018-02-26] MEDS: BuPROPion XL* 150 MG TAB.XL PO SCH (09:41)
[2018-02-26] MEDS: QUEtiapine TAB* 100 MG PO SCH (09:41)
[2018-02-26] MEDS: Valproic Acid CAP(*) 250 MG PO SCH ×2 (09:42→20:47)
--- NOTE | 2018-02-26 11:20 | PN ---
Subjective - Subjective Date of Service: 02/26/18 Service Type: 76639 Hosp care 25 min moderate complexity Subjective: SUBJECTIVE: Nursing Report: Patient was visible on unit, no chemical restraints or PRNs. Slept overnight. Attending group. CC: "I think I have Bipolar I Patient was seen and evaluated by functional tester typewriters today outside his room. He was seen on the unit interacting with peers. Patient reported visiting with his girlfriend over the weekend and the visit went well. Patient denied feeling drowsy from medications. He denied rash or side effects from medications. Patient denied shortness of breath, pain on urination, chest pain, rash, diarrhea, fever, muscle pain or stiffness Patient reports having good appetite and sound sleep overnight. He denied suicidal and/or homicidal ideation intent or plan. Patient denied feeling that people were against him or out to hurt him. He denied auditory and or visual hallucinations He felt safe on the unit. Objective - Appearance Appearance: Healthy Appearing Dysmorphic Features: No Hygiene: Normal Grooming: Fairly Well Kept - Behavior Psychomotor Activities: Normal Exhibits Abnormal Movement: No - Attitude and Relatedness Attitude and Relatedness: Superficially Cooperative Eye Contact: Fair - Speech Latencies: Normal - Mood Patient's Decription of Mood: "Fine" - Affect Observed Affect: Non-labile Affect Consistent with: Euthymia - Thought Process Patient's Thought Process: Over Inclusive Thought Content: No Passive Wish, No Suicidal Planning, No Homicidal Ideation, No Paranoid Ideation - Sensorium Experiencing Hallucinations: No, Sensorium is Clear Type of Hallucinations: Visual: No, Auditory: No, Command: No - Level of Consciousness Level of Consciousness: Alert Orientation: Yes Intact, Yes Orientated to Time, Yes Orientated to Place, Yes Orientated to Person - Impulse Control Impulse Control: Tenuous - Insight and Judgement Insight and Judgement: Fair - Group Participation Particating in Group Activities: Yes - Medication Management Medication Management Adherence: Yes Assessment - Assessment Merits Inpatient Hospitalization: For Stabilization Inpatient DSM-V Dx: F31.2 Clinical Impression: 27 year old single male with history of Bipolar disorder. Currently manic and disruptive on the unit. He is compliant with treatment. Patient has shown improvement since admission. MHU: Problem List - Patient Problems (1) Bipolar disorder with psychotic features Current Visit: Yes Status: Acute Code(s): F31.9 - BIPOLAR DISORDER, UNSPECIFIED SNOMED Code(s): 07439944 Comment: management per psych Plan - Plan Treatment Plan: Name: SANDRA CORNELL Birthdate: 1990 [id number] Justification for admission: Patient is a danger to himself, currently manic and is unable to appreciate his treatment needs. The patient requires inpatient admission at this time to assure safety, receive treatment and work toward stabilization. Court hearing for retention decided in favor to continue inpatient care. Haldol 5mg PO q6 prn for psychotic agitation. Continue depakote 500mg BID. Level is pending Continue wellbutrin 150mg daily. Change seroquel to bedtime dosing 400mg po qhs and d/c seroquel 300mg BID. Long acting AP injection to be discussed. Goals to include improve mood regulation. Denied history of diabetes and or seizures . AIMS 0. The risks, benefits, and alternative treatment options were discussed as well as of the risks of refusing treatment. Treatment associated risks discussed . After this discussion and an acknowledgement of his understanding he made the decision for the current type of treatment. Disposition patient may return to live with his girlfriend. Contact with Agnes payton gf will be made today. Possible discharge tomorrow or Monday. Continued Medication Management: Continue Outpt Medication Medications: Current Medications Acetaminophen (Tylenol Tab*) 650 mg PO Q4H PRN PRN Reason: PAIN or TEMP > 101 F Al Hydrox/Mg Hydrox/Simethicone (Maalox Plus*) 30 ml PO Q4H PRN PRN Reason: INDIGESTION Bupropion HCl (Wellbutrin Xl *) 150 mg PO DAILY [facility] Last Admin: 02/26/18 09:41 Dose: 150 mg Device (Nicotine Mouth Piece*) 1 each INH Q2H PRN PRN Reason: CRAVINGS Last Admin: 02/24/18 14:57 Dose: 1 each Haloperidol (Haldol Tab*) 5 mg PO Q6H PRN PRN Reason: psychotic agitation Multivitamins (Theragran Tab*) 1 tab PO DAILY [facility] [place] Last Admin: 02/26/18 09:41 Dose: 1 tab Nicotine (Nicotine Inhaler*) 10 mg INH Q2H PRN PRN Reason: CRAVING Last Admin: 02/25/18 20:22 Dose: 10 mg Quetiapine Fumarate (Seroquel Tab*) 400 mg PO BEDTIME [facility] [place] Valproic Acid (Depakene Cap(*)) 500 mg PO BID [facility] Last Admin: 02/26/18 09:42 Dose: 500 mg - Discharge Plan Discharge Plan: Inpatient Hospitalization
[2018-02-26] MEDS ORDERED: QUEtiapine TAB* 100 MG PO SCH (21:00)
[2018-02-27 08:42] VITALS: BP 116/82
[2018-02-27] MEDS ORDERED: Valproic Acid CAP(*) 250 MG PO SCH (09:00)
[2018-02-27] MEDS: BuPROPion XL* 150 MG TAB.XL PO SCH (09:17)
[2018-02-27] MEDS: Vitamin THERAPEUTIC TAB PO SCH (09:17)
--- NOTE | 2018-02-27 16:10 | DS ---
Subjective - Subjective Service Types: [id number] [facility] Day Mgmt complex over 30 min Discharge Date: 02/27/18 Subjective: SUBJECTIVE: Nursing Report: Patient was visible on unit, no chemical restraints or PRNs. Slept overnight. Attending group. CC: "I am much better Patient was seen and evaluated by senior grant writer today outside his room. He was seen on the unit interacting with peers. He reports that he is ready to be discharged because he wants to begin to take his mediations on his own and go to his follow up appointments and sleep in his own bed. He said he plans to have his girlfriend pick him up. Patient denied feeling drowsy from medications. He denied rash or side effects from medications. Patient denied shortness of breath, pain on urination, chest pain, rash, diarrhea, fever, muscle pain or stiffness Patient reports having good appetite and sound sleep overnight. He denied suicidal and/or homicidal ideation intent or plan. Patient denied feeling that people were against him or out to hurt him. He denied auditory and or visual hallucinations He felt safe on the unit. HPI CC "No one understands 27 year old white single male with past history of bipolar disorder presented to the Emergency room brought by police. He reported that his girlfriend makes him feel all alone and that he is going to leave her because of the way she makes him feel. He reported that on February 15 was the 10th anniversary of his mother from cancer. He reports that he wants to move back to [place] to live with his father. He reported that he recently saw a psychiatrist and was given Seroquel which he took for 4 days and that helped him sleep. He went to explain that it also made him hypo-manic. He describes it as a demon taking over his body and felt possessed. In a loud voice he demands that this provider look me in the eye and tell me right now that I dont deserve to be here. He gets up and takes off his shirt and says look at my scar I have been through all of this and you cant tell me I dont deserve to be here. He denied recent consumption of diet pills., steroids, energy drinks, and or illicit drug use other than cannabis. The patient said yes I am suicidal I tried doing it twice before and then changed his mind saying no that would be selfish I have seen how much pain that caused a family in the past. A girl I once dated had a father who shot himself in the head. He denied homicidal ideation intent or plan. Bipolar He reported feeling irritable most of the time while having an persistent abundance of energy most of the day without the use of substances other than cannabis and what he is prescribed . He reported having the decreased need to sleep for the last 2 nights. He reports no one knows how smart I am. MDD He reported in the past having feelings of low self worth , feeling empty inside , with feelings of hopelessness .He reported unintentional weight loss and lack of appetite . He reported that he has trouble staying asleep. Currently he reports no periods of low levels of energy or difficulty initiating and completing tasks. Psychosis He denied hearing things that other people do not hear or seeing things other people do not see. He denied feeling that the TV is making references. He said that he is trustful of others and feels safe on the unit. The patient denied auditory and/ or visual hallucinations. Anxiety He denied fear of crowds, or phobias. He denied having symptoms of anxiety. He denied worrying most of the day and denied panic attacks. PTSD He denied flashbacks or recurrent nightmares or avoidance. PAST PSYCHIATRIC HISTORY: History of Bipolar disorder 1st admission: Denied past psychiatric hospitalizations in the past. History of past suicide/homicide attempts : 2 past suicide attempts both in 2008 the year his mother from cancer. He denied past homicidal incidents. Outpatient follow-up: Currently receiving mental health treatment follow up with Steve Colin NP . Medications: Past trials of medications included Seroquel Patient reported suicidal ideation with Zoloft and Remeron. He currently is on Seroquel 100mg qhs and lamictal 200mg BID (last taken yesterday) , Wellbutrin 150mg daily, vyvanse 20mg daily. FAMILY HISTORY: - Suicide: Denied - Mental illness: Mother and 2 brothers Dx with Bipolar I disorder - Substance abuse: Denied SUBSTANCE ABUSE HISTORY: He denied heroin and cocaine or using other illicit substances. He denied abusing pills not prescribed to him. He denied past substance abuse treatment. He smokes cannabis every night. He denied alcohol use in the last 3 years. He denied nicotine use. SOCIAL HISTORY: He is a single white male who has no children. Living with girlfriend in [place] he moved with her here to be with her because she is in law school. He was raised in [facility] in [place] by both parents. His mother 10 years ago from cancer. He reported having a close relationship with his father. He reported completed college education at [employer]. He reported having his cousins and 2 brothers for support. PAST MEDICAL HISTORY: Past history of testicular cancer that was surgically removed. Allergies: He denied known drug or food allergies Physical Exam: Please see ED note Mental Status Exam on Admission Appearance: 27 year old male appears stated age. Wearing glasses and blue patient gown. Psychomotor activity: Psychomotor agitation Eye contact: Fair Posture: Upright Attitude/behavior: Irritable, Defensive Speech: Pressured speech Mood: "upset " Affect: constricted Thought process: flight of ideas Thought content: Tangential Perceptions: He did not appear to be responding to internal stimuli. No visual hallucinations and/ or auditory hallucinations. Suicidal/homicidal targets: Recent suicidal ideation without intent or plan. Denied homicidal ideation, intent or plans. Sensorium/orientation: Awake and alert. Oriented to self, location, and time Insight/judgment: Poor insight and judgment. Diagnosis on Admission: Bipolar I, current manic phase. Cannabis use disorder currently in remission. Justification for Admission: For immediate safety and stabilization of meredith from bipolar I disorder Diagnosis on Discharge: Bipolar I disorder, currently in remission Condition at the time of discharge: At the time of discharge patient was not showing any signs or symptoms of mental illness that brought this patient to the hospital and was not a danger to self or others. Patient was not showing any side effects of medication. Patient denied suicidal and/ or homicidal ideation, intent or plans. Patient was taking medications as prescribed and was not showing any side effects of medications. This patient participated in some psychosocial rehabilitation and gained some insight into problems. Therapy Resources were offered to the patient. Patient was given a month supply of prescriptions at the time of discharge. This patient plans to follow up with the follow up arrangements that were put in place. Patient was asked to keep appointments as scheduled, take medication as prescribed and refrain from any use of alcohol or drugs. A meeting with his girlfriend was made before discharge and she felt that he was at his baseline and is ready to be discharged. A review of medication changes and tests as well as, risks and side effects of medications and importance of follow up care was discussed and he verbalized this understanding. Drug levels and labs to be performed in next outpatient appointment. Objective - Appearance Appearance: Healthy Appearing Dysmorphic Features: No Hygiene: Normal Grooming: Well Kept - Behavior Psychomotor Activities: Normal Exhibits Abnormal Movement: No - Attitude and Relatedness Attitude and Relatedness: Cooperative Eye Contact: Good - Speech Quality: Unpressured Latencies: Normal Quantity: Appropriate - Mood Patient's Decription of Mood: "Okay" - Affect Observed Affect: Non-labile Affect Consistent with: Euthymia - Thought Process Patient's Thought Process: Goal Directed Thought Content: No Passive Wish, No Suicidal Planning, No Homicidal Ideation, No Paranoid Ideation - Sensorium Experiencing Hallucinations: No, Sensorium is Clear Type of Hallucinations: Visual: No, Auditory: No, Command: No - Level of Consciousness Level of Consciousness: Alert Orientation: No Intact, No Orientated to Time, No Orientated to Place, No Orientated to Person - Impulse Control Impulse Control: Intact - Insight and Judgement Insight and Judgement: Fair - Group Participation Particating in Group Activities: Yes - Medication Management Medication Management Adherence: Yes Treatment Course & Assessment Clinical Course & Impression: 27 year old single male with history of Bipolar disorder. Currently manic and disruptive on the unit. He is compliant with treatment. Patient has shown improvement since admission and discharged is scheduled for today. Hospital course part A: Reason for admission includes stabilization of meredith: Admission HPI 27 year old white single male with past history of bipolar disorder presented to the Emergency room brought by police. He reported that his girlfriend makes him feel all alone and that he is going to leave her because of the way she makes him feel. He reported that on February 15 was the anniversary of his mother from cancer. He reports that he wants to move back to [place] to live with his father. He reported that he recently saw a psychiatrist and was given Seroquel which he took for 4 days and that helped him sleep. He went to explain that it also made him hypo-manic. He describes it as a demon taking over his body and felt possessed. In a loud voice he demands that this provider look me in the eye and tell me right now that I dont deserve to be here. He gets up and takes off his shirt and says look at my scar I have been through all of this and you cant tell me I dont deserve to be here. He denied recent consumption of diet pills., steroids, energy drinks, and or illicit drug use other than cannabis. The patient said yes I am suicidal I tried doing it twice before and then changed his mind saying no that would be selfish I have seen how much pain that caused a family in the past. A girl I once dated had a father who shot himself in the head. He denied homicidal ideation intent or plan. Hospital course part B: Treatment course tests, procedures and summary of results. The patient was admitted to the adult behavioral unit and placed on 15 minute check for safety. The patient did well on the unit and went to some groups. Interacted with peers had adequate sleep and regular appetite. Tolerated medication changes without side effects. AIMS was performed. Group therapy and services were offered. Upon admission patient was restarted on some of his home medications that included lamictal 200mg BID for mood stabilization no reports of a rash while it was taped down and discontinued. Valproic acid was started 250mg BID and increased to 500mg BID and then to 750mg BID before discharge. Seroquel 200mg BID for mood was started and increased to 300mg BID and then 400mg QHS. Ativan was started at 0.5mg BID and then 1mg BID and stopped on 02/23 and not continued after discharge. On admission Cr = 1.24 and repeated level was 1.5 then 1.35. Medicine consult was placed and determined that his baseline is around 1.2 due to prior chemo treatments. He had a bladder US with unremarkable results. EKG was performed for tachycardia and was reviewed by medical team and determined to be normal findings. Retention of treatment court hearing was on 02/23/18 and decided that he required further inpatient treatment. CBC, CMP, Lipid and HBA1c profile was performed and within normal limits. Patient was advised about the risks of treatment and possible weight gain and renal and metabolic side effects and importance to follow up with provider for labs and Valproic acid monitoring. Risks, benefits, side effects and alternatives have been discussed with this patient. The patient verbalized an understanding and accepted his current form of treatment. No access to firearms. Valproic acid level 27 sub therapeutic and a increase to his valproic acid dose was made. Patient was asked to keep appointments as scheduled, take medication as prescribed and refrain from any use of alcohol or drugs. A meeting with his girlfriend was made before discharge and she felt that he was at his baseline and is ready to be discharged. She plans to monitor medications and follow up appointments. He plans to follow up in the outpatient setting once a week. [facility] with [facility] therapist Ruby. Patient doesnt have substance abuse issues, has support from his girlfriend and no access to firearms. He plans to take a few days off before going back to work. No nicotine or substance abuse treatment resources were offered because patient did not smoke or have substance abuse history. Improvements in patient from the time of admission include: Patient speech was less pressured, thought process was more goal directed and he was able to get adequate sleep. He no longer had flight of ideas and his thought process was shown to be more organized. His frustration tolerance also improved and he was able to gain insight into his mental illness. He had no suicidal and or homicidal ideation intent or plan. He had no auditory ( including commanding type) and/ or visual hallucinations and is compliant with medications and is future orientated, and has no access to firearms. Merits Inpatient Hospitalization: No Clear for Discharge: Adequate Clinical Respons Inpatient DSM-V Dx: F31.2 Discharge Planning - Discharge Planning Discharge Plan: Outpatient Follow Up [facility] Recommendations for Continuing Care: Medication Management Medications: Current Medications Acetaminophen (Tylenol Tab*) 650 mg PO Q4H PRN PRN Reason: PAIN or TEMP > 101 F Al Hydrox/Mg Hydrox/Simethicone (Maalox Plus*) 30 ml PO Q4H PRN PRN Reason: INDIGESTION Bupropion HCl (Wellbutrin Xl *) 150 mg PO DAILY [facility] Last Admin: 02/27/18 09:17 Dose: 150 mg Device (Nicotine Mouth Piece*) 1 each INH Q2H PRN PRN Reason: CRAVINGS Last Admin: 02/24/18 14:57 Dose: 1 each Haloperidol (Haldol Tab*) 5 mg PO Q6H PRN PRN Reason: psychotic agitation Last Admin: 02/26/18 12:38 Dose: 5 mg Multivitamins (Theragran Tab*) 1 tab PO DAILY [facility] Last Admin: 02/27/18 09:17 Dose: 1 tab Nicotine (Nicotine Inhaler*) 10 mg INH Q2H PRN PRN Reason: CRAVING Last Admin: 02/25/18 20:22 Dose: 10 mg Quetiapine Fumarate (Seroquel Tab*) 400 mg PO BEDTIME [facility] Last Admin: 02/26/18 20:47 Dose: 400 mg Valproic Acid (Depakene Cap(*)) 750 mg PO BID [facility] Last Admin: 02/27/18 09:17 Dose: 750 mg Discharge Planning: Prescriptions provided for discharge [x] Yes [] No Follow up care details as per social work arrangements. Patient response to discharge plan: [x] eager for discharge [] agreeable with discharge plan [] ambivalent about discharge [] disagrees with discharge today
[2018-02-27 19:18] LABS: Free Valproic Acid <3 mcg/mL (5 - 25)
== END 2018-02-27 16:05 | disposition home or self-care (01) | DRG 753 ==
LOC: ED 14:03 → BSU 18:43
PROVIDERS: ADMIT Psychiatry & Neurology Psychiatry; ATTEND Psychiatry & Neurology Psychiatry
PROC: GZHZZZZ Group Psychotherapy (ICD-10-PCS; principal; 2018-02-20)
DX: F31.2 Bipolar disorder, current episode manic severe with psychotic features (principal); N17.9 Acute kidney failure, unspecified; N18.9 Chronic kidney disease, unspecified; F12.90 Cannabis use, unspecified, uncomplicated; R00.0 Tachycardia, unspecified; Z85.47 Personal history of malignant neoplasm of testis; Z92.21 Personal history of antineoplastic chemotherapy; Z92.3 Personal history of irradiation; Z81.8 Family history of other mental and behavioral disorders; Z91.5 Personal history of self-harm
CPT/HCPCS: 36415; 76770; 80048; 80053; 80061; 80076; 80164; 80165; 80307; 80320; 80329; 81003; 81015; 82550; 82570; 83036; 84156; 84300; 84443; 85025; 87086; 90686; 90853; 93005; 99222; 99232; 99233; 99284; A9270-GY; G0480; J1630; J2060